=== PATIENT | female | born 1930 | race Caucasian/White ===

== ENCOUNTER 2018-03-13 21:19 | Emergency (ER) | payer MEDICARE ==
[~2018-03-13] VITALS: Ht 165.1 cm; Wt 77.1 kg
[2018-03-13 21:30] VITALS: BP 88/60
[2018-03-13] MEDS ORDERED: Succinylcholine 20mg/ml 10ml vial ONE (21:35)
[2018-03-13] MEDS ORDERED: Etomidate 40mg/20ml Inj IV ONE (21:35)
[2018-03-13] MEDS ORDERED: Vancomycin 1.5gm/D5W 250ml 250 ML IVPB ONE (21:45)
[2018-03-13 21:54] LABS: BASOPHILS % (AUTO) 1.4 % (0.0-2.0); EOSINOPHILS % (AUTO) 0.1 % (0.0-3.0); HEMATOCRIT 35.7 % (37.0-47.0); HEMOGLOBIN 11.4 G/DL (12.0-16.0); LYMPHOCYTES % (AUTO) 15.6 % (20.0-45.0); MEAN CORPUSCULAR VOLUME 92 FL (80-99); MONOCYTES % (AUTO) 4.2 % (1.0-10.0); NEUTROPHILS % (AUTO) 78.8 % (45.0-75.0); PLATELET COUNT 139 K/UL (150-450); RED BLOOD COUNT 3.88 M/UL (4.20-5.40); RED CELL DISTRIBUTION WIDTH 15.3 % (11.6-14.8); WHITE BLOOD COUNT 5.4 K/UL (4.8-10.8)
[2018-03-13] MEDS ORDERED: Acetaminophen 650 MG SUPP RECTAL ONE (22:00)
[2018-03-13] MEDS ORDERED: Piperacillin/Tazobactam 3.375 GM in D5W 55 ML IV SCH (22:00)
[2018-03-13 22:08] LABS: ANION GAP 23 mmol/L (5-15); BLOOD UREA NITROGEN 46 mg/dL (7-18); CALCIUM 8.5 MG/DL (8.5-10.1); CARBON DIOXIDE 13 MMOL/L (21-32); CHLORIDE 101 MMOL/L (98-107); CREATININE 2.3 MG/DL (0.55-1.30); POTASSIUM 5.4 MMOL/L (3.5-5.1); SODIUM 136 MMOL/L (136-145)
[2018-03-13 22:17] VITALS: BP 101/15
[2018-03-13 22:24] LABS: ALANINE AMINOTRANSFERASE 50 U/L (12-78); ALBUMIN 2.4 G/DL (3.4-5.0); ALBUMIN/GLOBULIN RATIO 0.7 (1.0-2.7); ALKALINE PHOSPHATASE 79 U/L (46-116); ASPARTATE AMINO TRANSFERASE 81 U/L (15-37); BILIRUBIN,TOTAL 1.2 MG/DL (0.2-1.0); CKMB 10.5 NG/ML (0.0-3.6); CREATINE KINASE 1029 U/L (26-308)
[2018-03-13 22:24] LABS: APPEARANCE,URINE SLIGHTLY CLOUDY; BILIRUBIN, URINE 2+ (NEGATIVE); COLOR,URINE BROWN; GLUCOSE, URINE (UA) NEGATIVE (NEGATIVE); KETONES,URINE 1+ (NEGATIVE); LEUKOCYTE ESTERASE ,URINE 2+ (NEGATIVE); NITRITE,URINE NEGATIVE (NEGATIVE); PH,URINE 5 (4.5-8.0); PROTEIN,URINE 2+ (NEGATIVE); UROBILINOGEN,URINE 4 MG/DL (0.0-1.0)
[2018-03-13 22:37] VITALS: BP 120/50
[2018-03-13 22:42] LABS: BILIRUBIN,DIRECT 0.4 MG/DL (0.0-0.3)
[2018-03-13 22:46] VITALS: BP 0/0
[2018-03-13] MEDS ORDERED: ASPIRIN EC81 MG ORAL (22:58)
[2018-03-13] MEDS ORDERED: DOCUSATE SODIU100 MG ORAL (22:58)
[2018-03-13] MEDS ORDERED: NAMENDA10 MG ORAL (22:58)
[2018-03-13] MEDS ORDERED: TYLENOL EXTRA500 MG ORAL (22:58)
[2018-03-13] MEDS ORDERED: SENNA8.6 M2 PO (22:58)
[2018-03-13] MEDS ORDERED: NEURONTIN100 MG ORAL (22:58)
--- NOTE | 2018-03-13 22:59 | Emergency Room Report ---
History of Present Illness General Chief Complaint: Altered Level of Consciousness Source: Medical Record, Caregiver Present Illness HPI 87-year-old female with a history of dementia, coming from assisted living, as a full code, for change in mental status and fever that occurred today when the nurse came to check her Apparently patient normally speaks, but has severe dementia She is completely altered, will not respond to verbal or painful stimuli, is awake with her mouth open and dry mucous membranes, unable to respond to any stimuli at all Her caregiver is here and provides this history Allergies: Coded Allergies: No Known Allergies (Unverified , 03/13/18) Patient History Limited by: age, medical condition Past Medical History: see triage record Last Menstrual Period: na Reviewed Nursing Documentation: PMH: Agreed; PSxH: Agreed Review of Systems All Other Systems: limited - ams Physical Exam Vital Signs Date Time Temp Pulse Resp B/P (MAP) Pulse Ox O2 Delivery O2 Flow Rate FiO2 03/13/18 21:20 100.4 150 22 64/40 92 Non-Rebreather 15.0 100.4 Sp02 EP Interpretation: reviewed, abnormal - hypoxic General Appearance: severe distress, lethargic Head: normocephalic, atraumatic Eyes: left eye normal inspection - injection; bilateral eye PERRL, bilateral eye other - sunken ENT: normal ENT inspection, normal pharynx, no angioedema, uvula midline, dry mucus membranes Neck: normal inspection, thyroid normal, supple/symm/no masses Respiratory: chest non-tender, respiratory distress, accessory muscle use, rhonchi, chest symmetrical, palpation of chest normal Cardiovascular #1: no edema, no JVD, no murmur, tachycardia, slow capillary refill Cardiovascular #2: 1+ radial (R), 1+ radial (L), 1+ femoral (R), 1+ femoral (L) Gastrointestinal: normal inspection, non tender, soft, no mass, no guarding, no rebound Rectal: deferred Genitourinary: normal inspection, no CVA tenderness, ext genitalia/vag normal Musculoskeletal: no calf tenderness Neurologic: other - Unresponsive, lethargic Skin: normal color, no rash, warm/dry Lymphatic: no adenopathy Procedures Critical Care Time Critical Care Time 30 minutes of critical care time excluding all procedures due to need for emergent evaluation and re-evaluations 2/2 AMS and hypotension, tachycardia, placing patient at high risk of mortality. Intubation Intubation : Consent: Emergent Intubation Method: orotracheal Tube Size (cm): 7.5 Medications: Etomidate, Succinylcholine Breath Sounds after Intubation: equal Intubation Complications: no complications Post Intubation Xray: No Attempts: One Patient Tolerated: Well Complications: None Medical Decision Making Diagnostic Impression: Primary Impression: Sepsis ER Course Patient with symptoms consistent with pneumosepsis Was given 30 mL/kg IV fluid bolus, blood cultures, lactic acid, broad-spectrum antibiotics, all within the first hour arrival She had a Soto catheter placed, and a chest x-ray, She also had a central line placed, as she was very hypotensive, but that improved with fluids and rectal Tylenol for her temp 104 initially Patient will be admitted to the ICU, Prior to admission, patient had a repeat focused sepsis examination and showed improved hydration and hemodynamics momentarily. However, patient precipitously went bradycardic and hypotensive, coded, and had an asystolic arrest. She was bag mask ventilated, CPR started, accucheck was 190's, and she was given 2 rounds of epi. I was informed her lactic acid was 14 and troponin 17. At this time patient had no corneal reflex , and had fixed pupils, so the code was ended after the 2nd asystole and pulselessness on pulse check. EKG Diagnostic Results EKG Time: 21:21 EP Interpretation: no stemi, multiple TWI's Rate: tachycardiac Rhythm: NSR ST Segments: no acute changes Rhythm Strip Diag. Results Rhythm Strip Time: 22:25 EP Interpretation: yes Rate: 140 Rhythm: NSR, no PVC's, no ectopy Last Vital Signs Date Time Temp Pulse Resp B/P (MAP) Pulse Ox O2 Delivery O2 Flow Rate FiO2 18 22:17 104.3 149 35 101/15 93 Non-Rebreather 15.0 104.3 Status: worsened Disposition: Condition: HARRY BONILLA M.D March 13, 2018 22:58
--- NOTE | 2018-03-15 12:44 | Cardiology Report ---
APPROVED REPORT EKG Measurement Heart [id number] DC [id number] [id number] Sinus tachycardia Inferior infarct, age undetermined Abnormal ECG
== END 2018-03-14 02:03 | disposition expired ==
LOC: EDBD 21:19 → EMR 21:34 → CANBEDREQ 23:18 → EMR 03-14 02:03
DX: A41.9 Sepsis, unspecified organism (principal)
CPT/HCPCS: 31500; 36415; 80053; 81003; 82248; 82550; 82553; 83605; 83735; 84478; 84484; 85025; 87081; 87086; 87181; 92950; 93005; 94002; 94664; 96374; 96375; 99291; J0171; J0330; J3370